=== PATIENT | male | born 1985 | race Caucasian/White ===

== ENCOUNTER 2018-11-29 10:16 | Emergency (ER) | payer OTHER ==
[~2018-11-29] VITALS: Ht 198.1 cm; Wt 171.0 kg
[2018-11-29] MEDS ORDERED: [UNRECOGNIZED DRUG - OTHER] (10:39)
[2018-11-29] MEDS ORDERED: NORCO 5-325 TA1 EACH PO (12:40)
[2018-11-29] MEDS ORDERED: COLCRYS0.6 MG PO (12:40)
== END 2018-11-29 12:52 | disposition home or self-care (01) ==
LOC: ED 10:16
DX: M10.9 Gout, unspecified (principal); I10 Essential (primary) hypertension; Z87.891 Personal history of nicotine dependence; Z79.899 Other long term (current) drug therapy
CPT/HCPCS: 20610; 99283-25; J3301

== ENCOUNTER 2019-01-01 12:00 | Emergency (ER) | payer OTHER ==
[~2019-01-01] VITALS: Ht 198.1 cm; Wt 171.0 kg
[~2019-01-01 12:00] MED LIST: COLCRYS0.6 MG PO; NORCO 5-325 TA1 EACH PO; [UNRECOGNIZED DRUG - OTHER]
[2019-01-01] MEDS ORDERED: COLCHICINE0.6 M1 PO (13:00)
== END 2019-01-01 13:10 | disposition home or self-care (01) ==
LOC: ED 12:00
DX: M10.9 Gout, unspecified (principal); I10 Essential (primary) hypertension; Z87.891 Personal history of nicotine dependence
CPT/HCPCS: 96374; 99283-25; J1885

== ENCOUNTER 2019-04-14 14:57 | Emergency (ER) | payer OTHER ==
[~2019-04-14] VITALS: Ht 198.1 cm; Wt 171.0 kg
[~2019-04-14 14:57] MED LIST changes: +COLCHICINE0.6 M1 PO
[2019-04-14] MEDS ORDERED: ALLOPURINOL100 MG PO (16:28)
[2019-04-14] MEDS ORDERED: IBUPROFEN200 MG (16:29)
[2019-04-14] MEDS ORDERED: PREDNISONE20 MG PO (16:32)
== END 2019-04-14 16:45 | disposition home or self-care (01) ==
LOC: ED 14:57
DX: L30.9 Dermatitis, unspecified (principal); I10 Essential (primary) hypertension; Z87.891 Personal history of nicotine dependence; Z79.899 Other long term (current) drug therapy
CPT/HCPCS: 99282; J7512

== ENCOUNTER 2022-03-24 16:25 | Inpatient (IN) | payer OTHER ==
[~2022-03-24] VITALS: Ht 198.1 cm; Wt 193.0 kg
[~2022-03-24 16:25] MED LIST changes: +ALLOPURINOL100 MG PO; +IBUPROFEN200 MG; +PREDNISONE20 MG PO
[2022-03-24] MEDS ORDERED: EUTHYROX150 MCG PO (19:12)
[2022-03-25] MEDS ORDERED: COLCHICINE0.6 M1 PO (09:06)
[2022-04-01] MEDS ORDERED: EUTHYROX150 MCG PO (10:00)
[2022-04-01] MEDS ORDERED: POTASSIUM CHLO10 MEQ PO (10:01)
[2022-04-01] MEDS ORDERED: TORSEMIDE20 MG PO (10:01)
[2022-04-01] MEDS ORDERED: ALLOPURINOL100 MG PO (10:02)
[2022-04-01] MEDS ORDERED: COLCHICINE0.6 M1 PO (10:02)
== END 2022-04-01 13:10 | disposition home or self-care (01) | DRG 291 ==
LOC: ED 16:25 → MS 19:32
PROVIDERS: ADMIT Internal Medicine; ATTEND Internal Medicine
DX: I11.0 Hypertensive heart disease with heart failure (principal); I50.33 Acute on chronic diastolic (congestive) heart failure; J96.21 Acute and chronic respiratory failure with hypoxia; J96.22 Acute and chronic respiratory failure with hypercapnia; Z68.43 Body mass index [BMI] 50.0-59.9, adult; I27.81 Cor pulmonale (chronic); Z20.822 Contact with and (suspected) exposure to COVID-19; G47.33 Obstructive sleep apnea (adult) (pediatric); K75.81 Nonalcoholic steatohepatitis (NASH); K80.20 Calculus of gallbladder without cholecystitis without obstruction; E03.9 Hypothyroidism, unspecified; D69.6 Thrombocytopenia, unspecified; E79.0 Hyperuricemia without signs of inflammatory arthritis and tophaceous disease; E66.01 Morbid (severe) obesity due to excess calories; K74.00 Hepatic fibrosis, unspecified; M10.9 Gout, unspecified; G89.29 Other chronic pain; Z91.19 Patient's noncompliance with other medical treatment and regimen; Z87.891 Personal history of nicotine dependence; Z98.890 Other specified postprocedural states; Z79.52 Long term (current) use of systemic steroids; Z79.899 Other long term (current) drug therapy
CPT/HCPCS: 36415; 36600; 71046; 76705; 80048; 80053; 82803; 83735; 83880; 84443; 85025; 87502; 93306; 94760; 94761; 94762; 99285-25; A9270; C9803; J1120; J1940; J3475; U0003